=== PATIENT | female | born 1975 | race Caucasian/White ===

== ENCOUNTER 2017-08-21 12:52 | Emergency (ER) | payer MEDICAID, SELFPAY ==
[~2017-08-21] VITALS: Ht 167.6 cm; Wt 100.1 kg
[2017-08-21] MEDS ORDERED: DIPH,PERTUSS(ACELL),TET VAC/PF 0.5 ML IM-VACC ONE ×2 (13:16→13:30)
[2017-08-21] MEDS ORDERED: LIDOCAINE-MPF 1%, 2ML INFIL ONE (13:30)
[2017-08-21 13:37] VITALS: BP 122/82
== END 2017-08-21 13:41 | disposition home or self-care (01) ==
LOC: ED 13:00
DX: L03.313 Cellulitis of chest wall (principal)
CPT/HCPCS: 10060; 90471; 90715; 99283